=== PATIENT | male | born 1965 | race African-American/Black ===

== ENCOUNTER 2017-01-13 12:08 | Emergency (ER) | payer BC ==
--- NOTE | 2017-01-13 13:10 | ER Document Report ---
ED Medical Screen (RME) - General Chief Complaint: Chest Pain > 30 Stated Complaint: CHEST PAIN Time Seen by Provider: 01/13/17 13:08 Notes: -year-old male patient with history of high blood pressure is onset late Thursday night of left parasternal chest pain that radiates into the back. There is no diaphoresis or nausea. He does not have a history of heart disease. I have greeted and performed a rapid initial assessment of this patient. A comprehensive ED assessment and evaluation of the patient, analysis of test results and completion of the medical decision making process will be conducted by additional ED providers. TRAVEL OUTSIDE OF THE [place] IN LAST 30 DAYS: No - Related Data Allergies/Adverse Reactions: No Known Allergies Allergy (Verified 01/13/17 12:35) Past Medical History - Past Medical History Cardiac Medical History: Reports: Hx Hypertension Renal/ Medical History: Denies: Hx Peritoneal Dialysis Musculoskeltal Medical History: Reports Hx Arthritis, Reports Hx Musculoskeletal Deformity, Reports Hx Musculoskeletal Trauma Past Surgical History: Reports: Hx Orthopedic Surgery - rt rotator cuff - Immunizations Immunizations up to date: Yes Hx Diphtheria, Pertussis, Tetanus Vaccination: Yes Physical Exam - Vital signs Vitals: Temp Pulse Resp BP Pulse Ox 98.3 F 74 18 147/92 H 97 01/13/17 12:38 01/13/17 12:38 01/13/17 12:38 01/13/17 12:38 01/13/17 12:38 Course - Vital Signs Vital signs: Temp Pulse Resp BP Pulse Ox 98.3 F 74 18 147/92 H 97 01/13/17 12:38 01/13/17 12:38 01/13/17 12:38 01/13/17 12:38 01/13/17 12:38
[2017-01-13 13:40] LABS: ABSOLUTE BASOPHILS # (AUTO) 0.1 10^3/uL (0.0-0.2); ABSOLUTE EOSINOPHILS # (AUTO) 0.1 10^3/uL (0.0-0.6); ABSOLUTE LYMPHOCYTES (AUTO) 2.2 10^3/uL (0.5-4.7); ABSOLUTE MONOCYTES (AUTO) 0.6 10^3/uL (0.1-1.4); ABSOLUTE NEUT (AUTO) 3.4 10^3/uL (1.7-8.2); BASOPHILS % (AUTO) 1.1 % (0-2); EOSINOPHILS % (AUTO) 1.9 % (0-6); HEMATOCRIT 43.2 % (37.9-51.0); HEMOGLOBIN 14.2 g/dL (13.5-17.0); HGB HCT DIFFERENCE -0.6; LYMPHOCYTES % (AUTO) 35.1 % (13-45); MEAN CORPUSCULAR HGB CONC 32.8 g/dL (32.0-36.0); MEAN CORPUSCULAR VOLUME 101 fl (80-97); MONOCYTES % (AUTO) 8.8 % (3-13); RED BLOOD COUNT 4.29 10^6/uL (4.35-5.55); RED CELL DISTRIBUTION WIDTH 12.8 % (11.5-14.0); SEGMENTED NEUTROPHILS % (AUTO) 53.1 % (42-78); WHITE BLOOD COUNT 6.3 10^3/uL (4.0-10.5)
[2017-01-13 13:58] LABS: ALANINE AMINOTRANSFERASE 27 U/L (21-72); ALBUMIN 4.3 g/dL (3.5-5.0); ALKALINE PHOSPHATASE 63 U/L (38-126); ANION GAP 11 (5-19); ASPARTATE AMINO TRANSFERASE 21 U/L (17-59); BILIRUBIN,DIRECT 0.2 mg/dL (0.0-0.4); BILIRUBIN,TOTAL 0.7 mg/dL (0.2-1.3); BLOOD UREA NITROGEN 15 mg/dL (7-20); CALCIUM 9.8 mg/dL (8.4-10.2); CARBON DIOXIDE 26 mmol/L (22-30); CHLORIDE 102 mmol/L (98-107); CREATINE KINASE 190 U/L (55-170); CREATININE RESULT 1.09 mg/dL (0.52-1.25); GLUCOSE 90 mg/dL (75-110); POTASSIUM 4.7 mmol/L (3.6-5.0); SODIUM 139.1 mmol/L (137-145); TOTAL PROTEIN 7.8 g/dL (6.3-8.2)
[2017-01-13 14:10] LABS: CREATINE KINASE MB 1.43 ng/mL (<4.55)
--- NOTE | 2017-01-13 14:10 | RADIOLOGY REPORT (SQ) ---
EXAM DESCRIPTION: CHEST PA/LAT COMPLETED DATE/TIME: 01/13/2017 1:40 pm REASON FOR STUDY: chest pain COMPARISON: 02/06/2016 EXAM PARAMETERS: NUMBER OF VIEWS: two views TECHNIQUE: Digital Frontal and Lateral radiographic views of the chest acquired. RADIATION DOSE: NA LIMITATIONS: none FINDINGS: LUNGS AND PLEURA: No opacities, masses or pneumothorax. No pleural effusion. MEDIASTINUM AND HILAR STRUCTURES: No masses or contour abnormalities. HEART AND VASCULAR STRUCTURES: Heart normal size. No evidence for failure. BONES: No acute findings. HARDWARE: None in the chest. OTHER: No other significant finding. IMPRESSION: NO SIGNIFICANT RADIOGRAPHIC FINDING IN THE CHEST. TECHNICAL DOCUMENTATION: JOB ID: [id number] [employer]- All Rights Reserved
[2017-01-13 14:13] LABS: TROPONIN I < 0.012 ng/mL
--- NOTE | 2017-01-13 16:02 | ER Document Report ---
ED Cardiac - General Chief Complaint: Chest Pain > 30 Stated Complaint: CHEST PAIN Time Seen by Provider: 01/13/17 13:08 Information source: Patient Notes: Patient is a 51-year-old male with past medical history of high blood pressure who presents today stating the onset around 2 days ago when he "got really angry " he developed some discomfort. He states it is slightly to his chest and also to his back. He states it is really only a 2 out of 10 maximum and feels like a "pinprick". He denies any shortness of breath. He states it does exacerbate when he takes a deep breath, again only a maximum of 2 out of 10. He denies any cough, calf pain, leg swelling, recent trips or travel. Patient does smoke. He denies any family history of early heart attacks or strokes. Patient does state that the pain appears to be worse also when "I get angry". TRAVEL OUTSIDE OF THE [place] IN LAST 30 DAYS: No - HPI Patient complains to provider of: Other - See above Was the onset of pain: Gradual Is the pain a: New problem Chest pain location: Other - See above Quality of pain: Other - See above Chest pain radiation location: None Severity now: None Severity at worst: Mild Pain level currently: 0 Chest pain precipitating factors: See above Cardiac risk factors: Hypertension Positive cardiac history: No Associated symptoms: Other - See above Exacerbated by: Other - See above Relieved by: Other - See above - Related Data Allergies/Adverse Reactions: No Known Allergies Allergy (Verified 01/13/17 12:35) Past Medical History - General Information source: Patient - Social History Smoking Status: Unknown if Ever Smoked Cigarette use (# per day): No Chew tobacco use (# tins/day): No Smoking Education Provided: No Frequency of alcohol use: None Family History: Reviewed & Not Pertinent Patient has suicidal ideation: No Patient has homicidal ideation: No - Past Medical History Cardiac Medical History: Reports: Hx Hypertension Renal/ Medical History: Denies: Hx Peritoneal Dialysis Musculoskeltal Medical History: Reports Hx Arthritis, Reports Hx Musculoskeletal Deformity, Reports Hx Musculoskeletal Trauma Past Surgical History: Reports: Hx Orthopedic Surgery - rt rotator cuff - Immunizations Immunizations up to date: Yes Hx Diphtheria, Pertussis, Tetanus Vaccination: Yes Review of Systems - Review of Systems Constitutional: denies: Fever EENT: denies: Eye discharge, Nose discharge Cardiovascular: denies: Palpitations, Orthopnea, Dizziness Respiratory: denies: Short of breath Gastrointestinal: denies: Nausea, Vomiting Musculoskeletal: denies: Leg swelling Skin: Other - no hives. denies: Rash Neurological/Psychological: Other - no slurred speech -: Yes All other systems reviewed and negative Physical Exam - Vital signs Vitals: Temp Pulse Resp BP Pulse Ox 98.3 F 74 18 147/92 H 97 01/13/17 12:38 01/13/17 12:38 01/13/17 12:38 01/13/17 12:38 01/13/17 12:38 Notes: Reviewed vital signs and nursing note as charted by RN. CONSTITUTIONAL: Alert and oriented and responds appropriately to questions. Well -appearing; well-nourished HEAD: Normocephalic; atraumatic CARD: Regular rate and rhythm; no murmurs, no clicks, no rubs, no gallops; symmetric distal pulses RESP: Normal chest excursion without splinting or tachypnea; breath sounds clear and equal bilaterally; no wheezes, no rhonchi, no rales ABD/GI: Normal bowel sounds; non-distended; soft, non-tender BACK: The back appears normal and is non-tender to palpation, there is no CVA tenderness EXT: Normal ROM in all joints; non-tender to palpation; no cyanosis, no effusions, no edema SKIN: Normal color for age and race; warm; dry; good turgor; capillary refill < 2 seconds; no acute lesions noted NEURO: Moves all extremities equally; Motor and sensory function intact PSYCH: The patient's mood and manner are appropriate. Grooming and personal hygiene are appropriate. Course - Re-evaluation Re-evalutation: Given the above history and physical examination I believe the risk of pulmonary embolism and aortic dissection to be extremely unlikely. We will attempt to obtain 2 sets of cardiac enzymes by 3 hours. Heart score is less than 3. If both sets of troponins are unremarkable and the patient continues with stable vital signs without pain, I believe it would be reasonable to discharge the patient home with strict return precautions and follow-up with the primary care provider. EKG shows a heart rate of 81, normal sinus rhythm, normal axis, minimal LVH, no obvious ST elevation or depression. 01/13/17 16:05 The initial set of cardiac enzymes are unremarkable. Patient is still pain- free. Chest x-ray shows normal heart, normal mediastinum, no fractures, normal lung bowens, no pneumothorax. Second set of cardiac enzymes pending 01/13/17 17:44 Second troponin unremarkable. Patient still denies any pain. Patient has a primary care physician that he believes he is able to follow up with. Given the heart pathway of less than or equal to 3 with 2 negative troponins, I would discharge the patient home with strict return precautions and follow-up with an outpatient parking meter attendant as well as his primary care physician. - Vital Signs Vital signs: Temp Pulse Resp BP Pulse Ox 98.3 F 74 18 147/92 H 97 01/13/17 12:38 01/13/17 12:38 01/13/17 12:38 01/13/17 12:38 01/13/17 12:38 - Laboratory Result Diagrams: 01/13/17 13:25 01/13/17 13:25 Laboratory results interpreted by me: 01/13/17 01/13/17 13:25 13:25 RBC 4.29 L MCV 101 H Creatine Kinase 190 H Discharge - Discharge Clinical Impression: Chest pain Qualifiers: Chest pain type: unspecified Qualified Code(s): R07.9 - Chest pain, unspecified Condition: Good Disposition: HOME, SELF-CARE Additional Instructions: Come back immediately with any change or return of pain, change in location or quality of pain, leg swelling, fevers, shortness of breath, or any other acute problems. Please make sure that you take an 81 mg baby aspirin once daily, and follow-up with both your primary care physician as well as a parking meter attendant that I or your primary refer you to. Referrals: JOHN MICHAUD MD [Primary Care Provider] - Follow up as needed JUNG BIRD MD [ACTIVE STAFF] - Follow up as needed
[2017-01-13 18:08] VITALS: BP 150/98
--- NOTE | 2017-01-14 08:39 | EKG REPORT ---
SEVERITY:- ABNORMAL ECG - SINUS RHYTHM CONSIDER LEFT VENTRICULAR HYPERTROPHY : Confirmed by: Kassandra Tovar MD 14-Jan-2017 08:38:34
== END 2017-01-13 18:10 | disposition home or self-care (01) ==
LOC: ER 12:08
DX: R07.9 Chest pain, unspecified (principal); I10 Essential (primary) hypertension; M54.9 Dorsalgia, unspecified
CPT/HCPCS: 36415; 71020; 80053; 82550; 82553; 84484; 85025; 85379; 93005; 93010; 99285

== ENCOUNTER 2019-08-01 21:58 | Emergency (ER) | payer BC, OTHER ==
--- NOTE | 2019-08-01 22:17 | EKG REPORT ---
SEVERITY:- NORMAL ECG - SINUS RHYTHM : Confirmed by: Mackenzie Woodall 01-Aug-2019 22:16:52
--- NOTE | 2019-08-01 22:56 | ER Document Report ---
ED Medical Screen (RME) - General Chief Complaint: Chest Pain Stated Complaint: CHEST PAIN Time Seen by Provider: 08/01/19 22:53 TRAVEL OUTSIDE OF THE [place] IN LAST 30 DAYS: No - HPI Notes: 08/01/19 22:55 Patient is a 54-year-old male with history of hypertension who presents complaining of epigastric abdominal pain after drinking a bunch of sodas today. Patient states the pain does not radiate, but when he does try to eat he feels full quickly. Patient states that when he pushes in the area of his stomach it does make the pain worse and feels like he wants to throw up. He is otherwise urinating normally and having normal bowel movements. He is able to ambulate without any worsening symptoms or dyspnea on exertion/shortness of breath. He otherwise feels well. No fever. No history of CAD, DM, PE. I have treated and performed a rapid initial assessment of this patient. A comprehensive ED assessment and evaluation of the patient, analysis of test results and completion of medical decision making process will be conducted by additional ED providers. PHYSICAL EXAMINATION: GENERAL: Well-appearing, well-nourished and in no acute distress. A&Ox4. Answers questions appropriately. Heart: RRR Lungs: CTAB Abdomen: Reproducible tenderness palpation of the epigastrium. No obvious RUQ tenderness, but overall limited exam in triage. - Related Data Allergies/Adverse Reactions: No Known Allergies Allergy (Verified 08/01/19 22:53) Past Medical History - Past Medical History Cardiac Medical History: Reports: Hx Hypertension Renal/ Medical History: Denies: Hx Peritoneal Dialysis Musculoskeltal Medical History: Reports Hx Arthritis, Reports Hx Musculoskeletal Deformity, Reports Hx Musculoskeletal Trauma Past Surgical History: Reports: Hx Orthopedic Surgery - rt rotator cuff - Immunizations Immunizations up to date: Yes Hx Diphtheria, Pertussis, Tetanus Vaccination: Yes Physical Exam - Vital signs Vitals: Temp Pulse Resp BP Pulse Ox 98.4 F 76 16 162/99 H 99 08/01/19 22:42 08/01/19 22:42 08/01/19 22:42 08/01/19 22:42 08/01/19 22:42 Course - Vital Signs Vital signs: Temp Pulse Resp BP Pulse Ox 98.4 F 76 16 162/99 H 99 08/01/19 22:42 08/01/19 22:42 08/01/19 22:42 08/01/19 22:42 08/01/19 22:42
[2019-08-01] MEDS ORDERED: MAG HYDROX/AL HYDROX/SIMETH SUSP 30 ML UDCUP PO ONE (22:57)
[2019-08-01] MEDS ORDERED: LIDOCAINE 2% VISCOUS SOLN 20 ML UDCUP PO ONE (22:57)
--- NOTE | 2019-08-01 23:42 | RADIOLOGY REPORT (SQ) ---
EXAM DESCRIPTION: XR CHEST 2 VIEWS COMPLETED DATE/TME: 08/01/2019 22:57 CLINICAL HISTORY: 54 years, Male, epigastric pain COMPARISON: 01/13/2017 chest NUMBER OF VIEWS: 2 TECHNIQUE: 2 views of the chest LIMITATIONS: None. FINDINGS: Heart size is normal. Lungs are clear. No pneumothorax IMPRESSION: Negative chest copyright 2010 [employer]- All Rights Reserved
[2019-08-02 00:37] LABS: ABSOLUTE BASOPHILS # (AUTO) 0.1 10^3/uL (0.0-0.2); ABSOLUTE EOSINOPHILS # (AUTO) 0.2 10^3/uL (0.0-0.6); ABSOLUTE LYMPHOCYTES (AUTO) 2.8 10^3/uL (0.5-4.7); ABSOLUTE MONOCYTES (AUTO) 0.7 10^3/uL (0.1-1.4); ABSOLUTE NEUT (AUTO) 4.5 10^3/uL (1.7-8.2); BASOPHILS % (AUTO) 0.7 % (0-2); HEMATOCRIT 45.1 % (37.9-51.0); HEMOGLOBIN 15.3 g/dL (13.5-17.0); LYMPHOCYTES % (AUTO) 33.9 % (13-45); MEAN CORPUSCULAR HEMOGLOBIN 33.7 pg (27.0-33.4); MEAN CORPUSCULAR VOLUME 99 fl (80-97); MONOCYTES % (AUTO) 8.5 % (3-13); RED BLOOD COUNT 4.55 10^6/uL (4.35-5.55); RED CELL DISTRIBUTION WIDTH 12.8 % (11.5-14.0); SEGMENTED NEUTROPHILS % (AUTO) 54.9 % (42-78); TOTAL CELLS COUNTED % (AUTO) 100 %; WHITE BLOOD COUNT 8.2 10^3/uL (4.0-10.5)
[2019-08-02 00:43] LABS: ALBUMIN 4.5 g/dL (3.5-5.0); ALKALINE PHOSPHATASE 64 U/L (38-126); ANION GAP 10 (5-19); ASPARTATE AMINO TRANSFERASE 25 U/L (17-59); BILIRUBIN,DIRECT 0.2 mg/dL (0.0-0.4); BILIRUBIN,TOTAL 0.9 mg/dL (0.2-1.3); BLOOD UREA NITROGEN 20 mg/dL (7-20); CALCIUM 10.3 mg/dL (8.4-10.2); CARBON DIOXIDE 28 mmol/L (22-30); CHLORIDE 100 mmol/L (98-107); GLUCOSE 94 mg/dL (75-110); POTASSIUM 4.1 mmol/L (3.6-5.0); TOTAL PROTEIN 7.7 g/dL (6.3-8.2)
[2019-08-02 01:05] LABS: PLATELET COUNT 327 10^3/uL (150-450)
--- NOTE | 2019-08-02 02:01 | ER Document Report ---
ED General - General Chief Complaint: Epigastric Pain Stated Complaint: CHEST PAIN Time Seen by Provider: 08/01/19 22:53 TRAVEL OUTSIDE OF THE [place] IN LAST 30 DAYS: No - HPI Patient complains to provider of: epigastric pain Onset: Last week Onset/Duration: Gradual Quality of pain: Burning Severity: Moderate Pain Level: 2 Context: 54 year old male with pain in epigastric region for 4 days and drinking a large amount of sodas recently. He has a h/o htn and smokes on occaision. No fever or recent illness. No CAD. Works locally at [employer]. - Related Data Allergies/Adverse Reactions: No Known Allergies Allergy (Verified 08/01/19 22:53) Past Medical History - Social History Smoking Status: Current Every Day Smoker Chew tobacco use (# tins/day): No Family History: Reviewed & Not Pertinent Patient has suicidal ideation: No Patient has homicidal ideation: No - Past Medical History Cardiac Medical History: Reports: Hx Hypertension Renal/ Medical History: Denies: Hx Peritoneal Dialysis Musculoskeletal Medical History: Reports Hx Arthritis, Reports Hx Musculoskeletal Deformity, Reports Hx Musculoskeletal Trauma Past Surgical History: Reports: Hx Orthopedic Surgery - rt rotator cuff - Immunizations Immunizations up to date: Yes Hx Diphtheria, Pertussis, Tetanus Vaccination: Yes Review of Systems - Review of Systems Constitutional: No symptoms reported EENT: No symptoms reported Cardiovascular: No symptoms reported Respiratory: No symptoms reported Gastrointestinal: See HPI, Abdominal pain Genitourinary: No symptoms reported Male Genitourinary: No symptoms reported Musculoskeletal: No symptoms reported Skin: No symptoms reported Hematologic/Lymphatic: No symptoms reported Neurological/Psychological: No symptoms reported Physical Exam - Vital signs Vitals: Temp Pulse Resp BP Pulse Ox 98.4 F 76 16 162/99 H 99 08/01/19 22:42 08/01/19 22:42 08/01/19 22:42 08/01/19 22:42 08/01/19 22:42 Interpretation: Normal - General General appearance: Appears well, Alert - HEENT Head: Normocephalic, Atraumatic Eyes: Normal Pupils: PERRL - Respiratory Respiratory status: No respiratory distress Chest status: Nontender Breath sounds: Normal Chest palpation: Normal - Cardiovascular Rhythm: Regular Heart sounds: Normal auscultation Murmur: No - Abdominal Inspection: Normal Distension: No distension Bowel sounds: Normal Tenderness: Tender - ttp epigastric region - mild Organomegaly: No organomegaly - Back Back: Normal, Nontender - Extremities General upper extremity: Normal inspection, Nontender, Normal color, Normal ROM, Normal temperature General lower extremity: Normal inspection, Nontender, Normal color, Normal ROM, Normal temperature, Normal weight bearing. No: Abner's sign - Neurological Neuro grossly intact: Yes Cognition: Normal Orientation: AAOx4 [place] Coma Scale Eye Opening: Spontaneous [place] Coma Scale Verbal: Oriented [place] Coma Scale Motor: Obeys Commands [place] Coma Scale Total: 15 Speech: Normal Motor strength normal: LUE, RUE, LLE, RLE Sensory: Normal - Psychological Associated symptoms: Normal affect, Normal mood - Skin Skin Temperature: Warm Skin Moisture: Dry Skin Color: Normal Course - Re-evaluation Re-evalutation: 08/02/19 02:10 MDM 54 year old with epigastric pain for 4 days. Benign EKG and workup here. After maalox no pain. Discussed limited caffenated sodas and replacing wiht water and he expressed understanidng. Also discussed smoking cessation and he expressed understanding. Smoking cessation counselling lasted 5 minutes. - Vital Signs Vital signs: Temp Pulse Resp BP Pulse Ox 98.4 F 76 16 162/99 H 99 08/01/19 22:42 08/01/19 22:42 08/01/19 22:42 08/01/19 22:42 08/01/19 22:42 - Laboratory Result Diagrams: 08/02/19 00:16 08/02/19 00:16 Laboratory results interpreted by me: 08/02/19 08/02/19 00:16 00:16 MCV 99 H MCH 33.7 H Calcium 10.3 H - Diagnostic Test Radiology reviewed: Reports reviewed - EKG Interpretation by Me EKG shows normal: Sinus rhythm Rate: Normal Rhythm: NSR - NSR Nl axis [address] elevation or depression my interpretation. Discharge - Discharge Clinical Impression: Epigastric pain Condition: Good Disposition: HOME, SELF-CARE Instructions: Abdominal Pain ([facility]) Additional Instructions: Stop smoking. Limit soda intake. Return here for any problems or concerns including but not limited to chest pain or shortness of breath. Prescriptions: Sucralfate [Carafate 1 gm Tablet] 1 gm PO TID #30 tablet Forms: Smoking Cessation Education, Return to Work
[2019-08-02 02:17] VITALS: BP 143/90
== END 2019-08-02 02:18 | disposition home or self-care (01) ==
LOC: ER 21:58
DX: R10.13 Epigastric pain (principal); R10.816 Epigastric abdominal tenderness; I10 Essential (primary) hypertension; F17.200 Nicotine dependence, unspecified, uncomplicated; Z71.6 Tobacco abuse counseling
CPT/HCPCS: 93005; 99284; 36415; 83690; 85025; 80053; 71046; 93010; J3490

== ENCOUNTER 2019-09-14 14:05 | Emergency (ER) | payer OTHER ==
[2019-09-14 17:44] LABS: ABSOLUTE LYMPHOCYTES (AUTO) 1.8 10^3/uL (0.5-4.7); ABSOLUTE MONOCYTES (AUTO) 0.7 10^3/uL (0.1-1.4); ABSOLUTE NEUT (AUTO) 3.4 10^3/uL (1.7-8.2); BASOPHILS % (AUTO) 0.6 % (0-2); EOSINOPHILS % (AUTO) 0.4 % (0-6); HEMATOCRIT 43.3 % (37.9-51.0); LYMPHOCYTES % (AUTO) 29.5 % (13-45); MEAN CORPUSCULAR HGB CONC 34.6 g/dL (32.0-36.0); MEAN CORPUSCULAR VOLUME 98 fl (80-97); MONOCYTES % (AUTO) 12.4 % (3-13); PLATELET COUNT 281 10^3/uL (150-450); RED BLOOD COUNT 4.41 10^6/uL (4.35-5.55); RED CELL DISTRIBUTION WIDTH 12.6 % (11.5-14.0); SEGMENTED NEUTROPHILS % (AUTO) 57.1 % (42-78); TOTAL CELLS COUNTED % (AUTO) 100 %
--- NOTE | 2019-09-14 17:52 | ER Document Report ---
ED Medical Screen (RME) - General Chief Complaint: Low Blood Pressure Stated Complaint: LOW BLOOD PRESSURE Time Seen by Provider: 09/14/19 14:41 Mode of Arrival: Ambulatory Information source: Patient Notes: 54-year-old male patient with history of hypertension presents the emergency department with multiple complaints today. Patient reports earlier in the week he felt like he had the flu so he took some DayQuil. He states his symptoms improved however the next day he became very dizzy, lightheaded feeling like he may pass out. He does report that his blood pressure is usually significantly elevated has been running very low over the last few days. He further reports that he just got a refill on his blood pressure medication but denies any change in the dosage that he is aware of . Exam: Lung sounds clear and equal bilaterally, patient alert, oriented, answering all questions, no focal neurological deficits noted. I have greeted and performed a rapid initial assessment of this patient. A comprehensive ED assessment and evaluation of the patient, analysis of test results and completion of the medical decision making process will be conducted by additional ED providers. I have specifically instructed the patient or family members with the patient to immediately return to any nursing staff should anything change in the patient's condition or with their chief complaint. TRAVEL OUTSIDE OF THE [place] IN LAST 30 DAYS: No - Related Data Allergies/Adverse Reactions: No Known Allergies Allergy (Verified 09/14/19 14:40) Past Medical History - Social History Chew tobacco use (# tins/day): No Frequency of alcohol use: Occasional Drug Abuse: None - Past Medical History Cardiac Medical History: Reports: Hx Hypertension Renal/ Medical History: Denies: Hx Peritoneal Dialysis Musculoskeltal Medical History: Reports Hx Arthritis, Reports Hx Musculoskeletal Deformity, Reports Hx Musculoskeletal Trauma Past Surgical History: Reports: Hx Orthopedic Surgery - rt rotator cuff - Immunizations Immunizations up to date: Yes Hx Diphtheria, Pertussis, Tetanus Vaccination: Yes Physical Exam - Vital signs Vitals: Temp Pulse Resp BP Pulse Ox 98.7 F 103 H 18 104/64 98 09/14/19 14:17 09/14/19 14:17 09/14/19 14:17 09/14/19 14:17 09/14/19 14:17 Course - Vital Signs Vital signs: Temp Pulse Resp BP Pulse Ox 98.7 F 103 H 18 104/64 98 09/14/19 14:17 09/14/19 14:17 09/14/19 14:17 09/14/19 14:17 09/14/19 14:17
[2019-09-14 17:55] LABS: ALBUMIN 4.1 g/dL (3.5-5.0); ALKALINE PHOSPHATASE 67 U/L (38-126); ANION GAP 12 (5-19); ASPARTATE AMINO TRANSFERASE 29 U/L (17-59); BILIRUBIN,DIRECT 0.1 mg/dL (0.0-0.4); BILIRUBIN,TOTAL 1.4 mg/dL (0.2-1.3); BLOOD UREA NITROGEN 38 mg/dL (7-20); CARBON DIOXIDE 28 mmol/L (22-30); CHLORIDE 96 mmol/L (98-107); GLUCOSE 91 mg/dL (75-110); POTASSIUM 3.9 mmol/L (3.6-5.0); TOTAL PROTEIN 7.3 g/dL (6.3-8.2)
[2019-09-14 17:56] LABS: A TYPE INFLUENZA AG NEGATIVE (NEGATIVE); B INFLUENZA AG NEGATIVE (NEGATIVE)
[2019-09-14 18:03] LABS: APPEARANCE,URINE SLIGHTLY-CLOUDY; BILIRUBIN,URINE NEGATIVE (NEGATIVE); COLOR,URINE YELLOW; GLUCOSE, URINE NEGATIVE (NEGATIVE); KETONES,URINE NEGATIVE (NEGATIVE); LEUKOCYTE ESTERASE,URINE NEGATIVE (NEGATIVE); NITRITE,URINE NEGATIVE (NEGATIVE); PROTEIN,URINE 30 mg/dL (NEGATIVE); URINE SPECIFIC GRAVITY 1.018; UROBILINOGEN,URINE NEGATIVE mg/dL (<2.0)
--- NOTE | 2019-09-14 20:23 | ER Document Report ---
Entered by NERY BAI SCRIBE 09/14/191945 Acting as scribe for:JOVANNA POTTER MD ED General - General Chief Complaint: Low Blood Pressure Stated Complaint: LOW BLOOD PRESSURE Time Seen by Provider: 09/14/19 14:41 Mode of Arrival: Ambulatory Information source: Patient Notes: 54-year-old male presents to the emergency department with dizziness that began "long ago". Patient states that he went to work today and when he was reading a computer screen, he felt dizzy. Patient states that he may have taken a second dose of his blood pressure medication. Patient stated that when he checked his blood pressure, "it was very low". Patient stated that he "just wanted to come in to get checked". Patient mentions that he has been dieting and restricting his water intake to lose weight. Patient denies feeling dizzy when standing up or walking. Patient denies ear pain and fever. Patient reports chills. TRAVEL OUTSIDE OF THE [place] IN LAST 30 DAYS: No - Related Data Allergies/Adverse Reactions: No Known Allergies Allergy (Verified 09/14/19 14:40) Past Medical History - General Information source: Patient - Social History Smoking Status: Former Smoker Cigarette use (# per day): No Chew tobacco use (# tins/day): No Frequency of alcohol use: Occasional Drug Abuse: None Lives with: Alone Family History: Reviewed & Not Pertinent Patient has suicidal ideation: No Patient has homicidal ideation: No - Past Medical History Cardiac Medical History: Reports: Hx Hypertension Musculoskeletal Medical History: Reports Hx Arthritis, Reports Hx Musculoskeletal Deformity, Reports Hx Musculoskeletal Trauma Past Surgical History: Reports: Hx Orthopedic Surgery - rt rotator cuff - Immunizations Immunizations up to date: Yes Hx Diphtheria, Pertussis, Tetanus Vaccination: Yes Review of Systems - Review of Systems Constitutional: See HPI, Chills EENT: denies: Ear pain Cardiovascular: See HPI, Dizziness Respiratory: No symptoms reported Gastrointestinal: No symptoms reported Genitourinary: No symptoms reported Male Genitourinary: No symptoms reported Musculoskeletal: No symptoms reported Skin: No symptoms reported Hematologic/Lymphatic: No symptoms reported Neurological/Psychological: denies: Homicidal ideation, Suicidal ideation -: Yes All other systems reviewed and negative Physical Exam - Vital signs Vitals: Temp Pulse Resp BP Pulse Ox 98.7 F 103 H 18 104/64 98 09/14/19 14:17 09/14/19 14:17 09/14/19 14:17 09/14/19 14:17 09/14/19 14:17 - Notes Notes: Physical Exam: General: Alert, appears well. HEENT: Normocephalic. Atraumatic. PERRL. Extraocular movements intact. Oropharynx clear. TMs are bulging; right is greater than the left. Neck: Supple. Non-tender. Respiratory: No respiratory distress. Clear and equal breath sounds bilaterally. Cardiovascular: Regular rate and rhythm. Abdominal: Normal Inspection. Non-tender. No distension. Normal Bowel Sounds. Back: No gross abnormalities. Extremities: Moves all four extremities. Upper extremities: Normal inspection. Normal ROM. Lower extremities: Normal inspection. No edema. Normal ROM. Neurological: Normal cognition. AAOx4. Normal speech. Psychological: Normal affect. Normal Mood. Skin: Warm. Dry. Normal color. Course - Re-evaluation Re-evalutation: 09/14/19 19:53 Patient resting comfortably not showing any signs of distress systolic blood pressure is 109 at this time. Is not tachycardic or showing signs of cardiovascular disease. - Vital Signs Vital signs: Temp Pulse Resp BP Pulse Ox 98.7 F 74 14 127/84 H 95 09/14/19 14:17 09/14/19 20:09 09/14/19 19:01 09/14/19 20:09 09/14/19 19:01 - Laboratory Result Diagrams: 09/14/19 16:52 09/14/19 16:52 Laboratory results interpreted by me: 09/14/19 09/14/19 09/14/19 16:40 16:52 16:52 MCV 98 H MCH 34.0 H Sodium 136.1 L Chloride 96 L BUN 38 H Creatinine 2.28 H Est GFR ( Amer) 37 L Est GFR (MDRD) Non-Af 30 L Total Bilirubin 1.4 H Urine Protein 30 H Urine Blood MODERATE H 09/14/19 19:55 Laboratory shows that BUN is 38 and creatinine 2.2 which is a marked change from 1 month ago when he had normal creatinine and BUN. Patient reports that he has been on a diet to lose weight and he also has purposefully not drink fluids. Patient is on a blood pressure medicine and has 25 mg of hydrochlorothiazide as a combo to list losartan. Explained to patient that his decrease in p.o. fluids and his taking blood pressure medicines with the diuretic is really advance his dehydration more than he expected. Offered patient IV fluids who were refused. Patient states he will rather drink water. We agreed to have a plan that he drinks water and follow-up with his physician primary care in 2 days so that he can prove that he is improving on his kidney function. - EKG Interpretation by Me Additional EKG results interpreted by me: 09/14/19 19:57 Twelve-lead EKG 09/14/2019 at 1702 shows normal sinus rhythm rate of 84 left atrial abnormality otherwise no acute ST-T wave changes. Discharge - Discharge Clinical Impression: Acute viral labyrinthitis of both ears, Dehydration, Acute kidney injury Disposition: HOME, SELF-CARE Additional Instructions: Labyrinthitis Labyrinthitis is a temporary disease of the inner ear. It's sometimes called vestibulitis. It often starts a few days after a cold or virus infection. Symptoms include vertigo (the spinning type of dizziness) or a sense of unsteadiness and nausea. The symptoms usually go away in a couple of days without any treatment. You should rest and keep your head still. The dizziness is worse if you move your head. Closing the eyes usually helps. Don't drive, work with dangerous machinery, or get up on ladders or scaffolds until a few days after the dizziness resolves. Medicine such as meclizine (Antivert, Bonine) can reduce the dizziness and nausea. Tranquilizers (such as diazepam) can suppress your sense of balance, reducing the unpleasantness of the vertigo. Call or return if you develop ear pain, loss of hearing, fever, severe vomiting, or any other new symptom. You have developed an acute kidney injury to your kidneys due to your dehydration and the current diet plan that you are on. Also you are on a diuretic which also increases your kidneys to filter more water to help control your blood pressure. 1 we recommend strongly that you increase your fluids water and follow-up with your primary care physician within 1 to 2 days show that you are improving on your kidney function. This is very important for you to follow-up and be sure your kidneys return back to the normal baseline. When your kidneys no longer filter the blood adequately, we call this "kidney failure." While kidney failure can happen suddenly, usually it's the result of many years of slow damage. Kidneys can be injured by many different medical problems including infections, diabetes, high blood pressure, kidney stones, drug toxicity, and immune reactions. The symptoms of kidney failure do not develop until most of the normal kidney tissue has been lost. Early kidney failure usually has no symptoms. As it gets worse, symptoms can include weakness, confusion, high blood pressure, swelling, nausea, anemia, and itching. The seriousness of kidney failure is determined by measuring kidney function tests such as BUN or creatinine. The cause of kidney failure may be obvious from the medical history, but occasionally requires special tests such as an angiogram or kidney biopsy. Kidney failure can cause high blood pressure, and uncontrolled hypertension damages kidneys. Good control of blood pressure is important. If you have diabetes, good blood sugar control helps prevent further kidney damage. Fluid retention can be monitored by checking your weight daily. It's best to eat a diet low in protein, potassium, and salt. When kidney failure becomes severe, dialysis or kidney transplant may be required. Call the doctor or return if you develop significant weakness, repeated vomiting, severe lightheadedness, confusion, severe headache, or other serious change in your health. Dehydration Dehydration can result from vomiting or diarrhea, fever, or decreased intake of fluids. If severe, hospitalization and intravenous fluids may be req uired. Most cases are treated at home with fluids by mouth. For the next 24 hours, drink lots of clear fluids. In mild cases, this can be soda pop or sports drinks. For more severe dehydration, the doctor may recommend special fluids such as Pedialyte or Lytren. Try to get three liters (3 quarts) of fluid per day. If vomiting occurs, continue to drink the fluids frequently (every 15 to 20 minutes), but in small amounts (one or two ounces). Depending on the type of dehydration, the doctor may prescribe antinausea medicine or potassium replacements. Call the doctor or return for re-examination if you become progressively weak, vomit repeatedly, or have other new symptoms. Prescriptions: Meclizine HCl [Antivert 25 mg Tablet] 25 mg PO TID PRN #21 tablet PRN Reason: Forms: Return to Work I personally performed the services described in the documentation, reviewed and edited the documentation which was dictated to the scribe in my presence, and it accurately records my words and actions.
[2019-09-14 21:02] VITALS: BP 113/85
--- NOTE | 2019-09-14 22:29 | EKG REPORT ---
SEVERITY:- BORDERLINE ECG - SINUS RHYTHM PROBABLE LEFT ATRIAL ABNORMALITY : Confirmed by: Mackenzie Woodall 14-Sep-2019 22:28:44
== END 2019-09-14 20:31 | disposition home or self-care (01) ==
LOC: ER 14:05
DX: H83.03 Labyrinthitis, bilateral (principal); B97.89 Other viral agents as the cause of diseases classified elsewhere; E86.0 Dehydration; N17.9 Acute kidney failure, unspecified; R42 Dizziness and giddiness; R68.83 Chills (without fever); I10 Essential (primary) hypertension; Z79.899 Other long term (current) drug therapy; Z87.891 Personal history of nicotine dependence
CPT/HCPCS: 36415; 80053; 81001; 85025; 87804; 93005; 93010; 99285